=== PATIENT | female | born 1985 | race Asian ===

== ENCOUNTER 2016-12-25 08:51 | Inpatient (IN) | payer OTHER ==
[2016-12-25] VITALS (29 sets, daily range): BP systolic 93–152; BP diastolic 50–87; PULSE 87–113; TEMP 97.6–99.9
[~2016-12-25] VITALS: Ht 165.1 cm; Wt 74.5 kg
[2016-12-25] MEDS ORDERED: PRENATAL MVI (09:09)
[2016-12-25 10:10] LABS: BASO % 0.3 % (0.0-2.0); EOS % 0.2 % (0-4.0); GRAN # 9.5 (1.4-6.5); GRAN % 82.4 % (42.2-75.2); HEMATOCRIT 38.5 % (37.0-47.0); HEMOGLOBIN 13.3 g/dl (12.5-16.0); LYMPH # 1.4 (1.2-3.4); MEAN CELL VOLUME 100 fl (80.0-100.0); MEAN CORPUSCULAR HEMOGLOBIN 35 pg (27.0-31.0); MEAN CORPUSCULAR HGB CONC 35 g/dl (33.0-37.0); MONO # 0.5 (0.1-0.6); MONO % 4.6 % (1.7-9.3); PLATELET COUNT 223 K/mm3 (130-400); RED BLOOD COUNT 3.86 M/mm3 (4.10-5.30); REDCELL DISTRIBUTION WIDTH-CV 12.6 % (11.5-14.5); WHITE BLOOD COUNT 11.6 K/mm3 (4.8-10.8)
[2016-12-25] MEDS ORDERED: MOTRIN 800800 MG/TAB PO (12:22)
[2016-12-25] MEDS ORDERED: PERCOCET 325 MG1 TA2 PO (12:22)
[2016-12-26 03:00] VITALS: BP 94/58; PULSE 101; TEMP 97.6
[2016-12-26 08:00] VITALS: BP 111/70; PULSE 98; TEMP 98.2
[2016-12-26 16:00] VITALS: BP 102/68; PULSE 92; TEMP 98.2
[2016-12-26 21:35] VITALS: BP 103/65; PULSE 93; TEMP 98
[2016-12-27 07:22] VITALS: BP 105/61; PULSE 85; TEMP 97.5
== END 2016-12-27 16:15 | disposition home or self-care (01) | DRG 775 ==
LOC: LDRO 08:51 → LDR 09:23 → OB 09:23
PROVIDERS: Obstetrics & Gynecology
PROC: 10E0XZZ Delivery of Products of Conception, External Approach (ICD-10-PCS; principal; 2016-12-25)
PROC: 0KQM0ZZ Repair Perineum Muscle, Open Approach (ICD-10-PCS; 2016-12-25)
PROC: 0UQMXZZ Repair Vulva, External Approach (ICD-10-PCS; 2016-12-25)
DX: O36.5930 Maternal care for other known or suspected poor fetal growth, third trimester, not applicable or unspecified (principal); O70.1 Second degree perineal laceration during delivery; O71.82 Other specified trauma to perineum and vulva; Z3A.38 38 weeks gestation of pregnancy; Z37.0 Single live birth
CPT/HCPCS: J0690; J2590; J7120

== ENCOUNTER → 2017-01-12 | Outpatient (CLI) | payer OTHER ==
[~2017-01-12] MED LIST: MOTRIN 800800 MG/TAB PO; PERCOCET 325 MG1 TA2 PO; PRENATAL MVI
== END ==
LOC: OLC 15:04
DX: Z39.1 Encounter for care and examination of lactating mother (principal); Z71.89 Other specified counseling